=== PATIENT | male | born 1950 | race Caucasian/White ===

== ENCOUNTER → 2021-03-26 | Outpatient (CLI) | payer MEDICARE, OTHER ==
--- NOTE | 2021-03-26 07:41 | MR ---
EXAMINATION TYPE: MR knee LT wo con DATE OF EXAM: 03/26/2021 COMPARISON: None. HISTORY: Left knee pain for approximately 1 year resulting from a fall. TECHNIQUE: Multiplanar, multisequence imaging of the left knee is performed without IV contrast. FINDINGS: MEDIAL MENISCUS: Medial protrusion medial meniscus on coronal images. Anterior horn is intact without tear. Posterior horn is truncated with abnormal signal, this extends to the central body which is de formed. Findings consistent with significant displaced full-thickness tear. LATERAL MENISCUS: Anterior and posterior horns are intact without tear. CRUCIATE LIGAMENTS: The anterior and posterior cruciate ligaments are intact and unremarkable. COLLATERAL LIGAMENTS: The medial collateral ligament and lateral collateral ligament complex are inta ct period mild surrounding fluid signal is noted bilaterally. EXTENSOR MECHANISM: Visualized quadriceps and patellar tendons are intact. EFFUSION: [id number] size suprapatellar joint effusion. POPLITEAL CYST: No popliteal/meredith cyst. TRICOMPARTMENT SPACES: Moderate tricompartment joint space loss and spurring greatest patellofemoral compartment. CARTILAGE: Some chondromalacia patella with thinning of articular cartilage along the posterior dixon lar pole. There is additional cartilaginous loss medial tibiofemoral compartment. BONE MARROW SIGNAL: Heterogeneous areas of diminished T1 and increased T2 signal medial tibial femora l compartment at site of most prominent narrowing and cartilaginous loss. OTHER: No additional significant abnormality is appreciated. IMPRESSION: 1. Complex full-thickness tear central body medial meniscus extending into the posterior horn. 2. 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 3. Moderate-sized suprapatellar joint effusion. Suggestion of underlying synovitis. 4. Mild MCL sprain injury. 5. Mild LCL complex sprain injury.
== END | disposition home or self-care (01) ==
LOC: RADMRIMAIN 06:13
PROVIDERS: ATTEND Orthopaedic Surgery
DX: S83.242A Other tear of medial meniscus, current injury, left knee, initial encounter (principal); S83.412A Sprain of medial collateral ligament of left knee, initial encounter; M94.262 Chondromalacia, left knee; M25.462 Effusion, left knee; X58.XXXA Exposure to other specified factors, initial encounter; S83.422A Sprain of lateral collateral ligament of left knee, initial encounter